=== PATIENT | male | born 1950 | race Caucasian/White ===

== ENCOUNTER 2017-04-22 02:10 | Emergency (ER) | payer BC, OTHER ==
[~2017-04-22] VITALS: Ht 177.8 cm; Wt 78.0 kg
--- NOTE | 2017-04-22 02:30 | NUR ---
PT TAKEN TO BED 9
--- NOTE | 2017-04-22 02:31 | NUR ---
Dr. Francisco evaluating patient at bedside.
[2017-04-22] MEDS ORDERED: ACETAMINOPHEN EXTRA STRENGTH 500 MG TAB PO ONE (02:35)
[2017-04-22] MEDS ORDERED: PHENYLEPHRINE 0.5% 15 ML BTL NS ONE ×2 (02:35→02:43)
[2017-04-22 02:37] VITALS: BP 181/106
--- NOTE | 2017-04-22 02:45 | NUR ---
Dr. Francisco at bedside for rhinorocket placement to right nare. Pt tolerated well.
[2017-04-22] MEDS ORDERED: LORazepam 1 MG TAB PO ONE (02:50)
--- NOTE | 2017-04-22 02:58 | NUR ---
66/M c/o epistaxis x3 days, worsening tonight. Pt states "It will bleed a lot then stop for 2 hours then start up again." Pressure applied to nose, nose clamp in place; AOX4, clear speech. Pt noted spitting up blood clots. Denies N/V/D. Reports taking aspirin, denies taking blood thinners. VSS.
--- NOTE | 2017-04-22 03:38 | NUR ---
PT RESTING IN BED. NO ACTIVE BLEEDING NOTED.
--- NOTE | 2017-04-22 04:44 | NUR ---
Dr. Francisco made aware of BP 170/98
--- NOTE | 2017-04-22 06:38 | NUR ---
Pt waiting for a ride. Pt contacted friend driving from [employer].
[2017-04-22 06:49] VITALS: BP 170/98
--- NOTE | 2017-04-22 06:49 | NUR ---
Patient discharged with v/s stable. Written and verbal after care instructions given and explained. Patient alert, oriented and verbalized understanding of instructions. Ambulatory with steady gait. All questions addressed prior to discharge. ID band removed. Patient advised to follow up with PMD. Rx of Augmentin 875mg given. Patient educated on indication of medication including possible reaction and side effects. Opportunity to ask questions provided and answered.
== END 2017-04-22 06:49 | disposition home or self-care (01) ==
LOC: MED 02:10
DX: R04.0 Epistaxis (principal); Z88.1 Allergy status to other antibiotic agents
CPT/HCPCS: 30901; 99284